=== PATIENT | female | born 2000 | race Caucasian/White ===

== ENCOUNTER → 2019-10-17 | Outpatient (CLI) | payer OTHER ==
[2019-10-20 04:07] LABS: CHLAMYDIA TRACHOMATIS, NAA Negative (Negative); NEISSERIA GONORRHOEAE, NAA Negative (Negative)
== END ==
LOC: LAB SHORT 18:53 → LAB 18:53
PROVIDERS: Registered Nurse Community Health
DX: Z34.91 Encounter for supervision of normal pregnancy, unspecified, first trimester (principal)
CPT/HCPCS: 87491; 87591

== ENCOUNTER → 2020-02-11 | Outpatient (CLI) | payer OTHER ==
[2020-02-11 18:51] LABS: Hematocrit 34.4 % (33.0-51.0); Hemoglobin 11.6 g/dL (11.5-16.0)
== END ==
LOC: LAB SHORT 18:23 → LAB 18:23
PROVIDERS: Registered Nurse Community Health
DX: Z34.83 Encounter for supervision of other normal pregnancy, third trimester (principal)
CPT/HCPCS: 82950; 85014; 85018

== ENCOUNTER → 2020-02-28 | Outpatient (CLI) | payer OTHER ==
[2020-03-02 04:09] LABS: CHLAMYDIA TRACHOMATIS, NAA Negative (Negative); NEISSERIA GONORRHOEAE, NAA Negative (Negative)
== END ==
LOC: LAB SHORT 18:17 → LAB 18:17
PROVIDERS: Registered Nurse Community Health
DX: N89.8 Other specified noninflammatory disorders of vagina (principal)
CPT/HCPCS: 87070; 87205; 87491; 87591

== ENCOUNTER → 2020-04-17 | Outpatient (CLI) | payer OTHER | LOC: LAB SHORT 18:55 → LAB 18:55 | DX: Z34.83 Encounter for supervision of other normal pregnancy, third trimester (principal) | CPT/HCPCS: 87081; 87653 ==

== ENCOUNTER 2020-05-18 15:28 | Inpatient (IN) | payer OTHER ==
[~2020-05-18] VITALS: Ht 170.2 cm; Wt 85.4 kg
[2020-05-18] MEDS ORDERED: PRENATAL TABLE1 EAC2 PO (20:47)
[2020-05-18 20:56] LABS: BASOPHILS ABSOLUTE AUTO 0.04 K/mm3 (0.00-0.23); BASOPHILS PERCENT AUTO 0 % (0-2); EOSINOPHILS ABSOLUTE AUTO 0.01 K/mm3 (0.00-0.68); EOSINOPHILS PERCENT AUTO 0 % (0-6); Hematocrit 35.7 % (33.0-51.0); Hemoglobin 11.5 g/dL (11.5-16.0); IMMATURE GRAN ABSOLUTE AUTO 0.11 K/mm3 (0.00-0.10); IMMATURE GRAN PERCENT AUTO 1 % (0-1); LYMPHOCYTES ABSOLUTE AUTO 1.59 K/mm3 (0.84-5.20); LYMPHOCYTES PERCENT AUTO 9 % (21-46); MONOCYTES ABSOLUTE AUTO 1.08 K/mm3 (0.16-1.47); MONOCYTES PERCENT AUTO 6 % (4-13); Mean Corpuscular HGB 28.3 pg (26.0-34.0); Mean Corpuscular HGB Conc 32.2 g/dL (31.5-36.5); Mean Corpuscular Volume 88 fL (80-100); Mean Platelet Volume 12.1 fL (9.1-12.4); NEUTROPHILS ABSOLUTE AUTO 15.41 K/mm3 (1.96-9.15); NEUTROPHILS PERCENT AUTO 85 % (41-73); Platelet Count 226 K/mm3 (150-400); RDW Coefficient Variation 12.4 % (11.7-14.2); RDW Standard Deviation 39.5 fL (35.1-46.3); Red Blood Cell Count 4.07 M/mm3 (3.80-5.20); White Blood Cell Count 18.24 K/mm3 (4.00-11.30)
--- NOTE | 2020-05-19 14:43 | NUR ---
LEG NUMB ON RIGHT BED CHANGED BUT UNABLE TO WALK TO BATHROOM AT THIS TIME, STATES SHE DOES NOT NEED TO VOID, FUNDUS FIRM, SCANT BLEEDING, WILL CALL WHEN SHE NEEDS TO VOID FOR HELP
[2020-05-20] MEDS ORDERED: IBU800 MG PO (05:19)
[2020-05-20 05:25] LABS: BASOPHILS ABSOLUTE AUTO 0.05 K/mm3 (0.00-0.23); BASOPHILS PERCENT AUTO 0 % (0-2); EOSINOPHILS ABSOLUTE AUTO 0.14 K/mm3 (0.00-0.68); EOSINOPHILS PERCENT AUTO 1 % (0-6); Hematocrit 28.1 % (33.0-51.0); Hemoglobin 8.9 g/dL (11.5-16.0); IMMATURE GRAN ABSOLUTE AUTO 0.06 K/mm3 (0.00-0.10); IMMATURE GRAN PERCENT AUTO 1 % (0-1); LYMPHOCYTES ABSOLUTE AUTO 3.33 K/mm3 (0.84-5.20); LYMPHOCYTES PERCENT AUTO 27 % (21-46); MONOCYTES ABSOLUTE AUTO 1.24 K/mm3 (0.16-1.47); MONOCYTES PERCENT AUTO 10 % (4-13); Mean Corpuscular HGB 28.1 pg (26.0-34.0); Mean Corpuscular HGB Conc 31.7 g/dL (31.5-36.5); Mean Corpuscular Volume 89 fL (80-100); Mean Platelet Volume 11.7 fL (9.1-12.4); NEUTROPHILS ABSOLUTE AUTO 7.35 K/mm3 (1.96-9.15); NEUTROPHILS PERCENT AUTO 60 % (41-73); Platelet Count 206 K/mm3 (150-400); RDW Coefficient Variation 12.6 % (11.7-14.2); RDW Standard Deviation 41.1 fL (35.1-46.3); Red Blood Cell Count 3.17 M/mm3 (3.80-5.20); White Blood Cell Count 12.17 K/mm3 (4.00-11.30)
--- NOTE | 2020-05-20 09:07 | NUR ---
RN ROUNED TO HELP W/ . INSTRUCT/DEMO WIDENING LATCH, CORRECT POSITIONING AND NIPPLE SHAPE AFTER FEEDS. INSTRUCT/REVIEWED BOOKLET AND BROCHURE ON WHAT TO EXPECT DURING THE FIRST WEEK W/ AND NB FEEDING PATTERN CHANGES. PT VERBALIZED UNDERSTANDING AND DENIES ANY FURTHER QUESTIONS OR CONCERNS.
--- NOTE | 2020-05-20 13:50 | NUR ---
RN ROUNDED AGAIN TO HELP W/ . IT HAS BEEN 5 HOURS SINCE NB FED LAST. NB HAS HIGH TSB LEVEL. INSTRUCTED PT THAT NB NEEDS TO FEED EVERY 2-3 HOURS AND TO SET ALARM ON PHONE TO WAKE NB UP TO FEED. PT HAS NB AT BREAST BUT NB IS SLEEPING AND PT IS NOT MAKING ANY ATTEMPT TO LATCH NB. RN SHOWED PT HOW TO HAND EXPRESS COLOSTRUM TO GET DROPS INTO NB MOUTH W/ THE HOPES OF GETTING BABY TO PERK UP AND LATCH. PT SCREAMED AT RN THAT IT HURTS WHEN SHE WAS HAND EXPRESSING AND STATES THAT IT DOESNT HURT WHEN NB IS LATCHED. PT INSTRUCTED TO LATCH NB EVERY 2-3 HOURS, BREASTFEED FOR 15 MINUTES AND SUPPLEMENT W/ FORMULA. PT STATES NB IS VERY SLEEPY, RN EXPLAINED THAT JAUNDICE WILL MAKE NB SLEEPY, AND IT IS IMPORTANT FOR PT TO WAKE NB. PT VERBALIZED UNDERSTANDING, DENIES ANY FURTHER QUESTIONS OR CONCERNS. PT DID NOT ASK ANY QUESTIONS OF RN WHEN IN THE ROOM.
== END 2020-05-20 14:00 | disposition home or self-care (01) | DRG 807 ==
LOC: BC 15:28 → OBS 15:28 → BC 15:29 → OBS 20:25 → BC 20:28
PROVIDERS: ADMIT Registered Nurse Community Health
PROC: 00HU33Z Insertion of Infusion Device into Spinal Canal, Percutaneous Approach (ICD-10-PCS; 2020-05-18)
PROC: 3E0R3BZ Introduction of Anesthetic Agent into Spinal Canal, Percutaneous Approach (ICD-10-PCS; 2020-05-18)
PROC: 10E0XZZ Delivery of Products of Conception, External Approach (ICD-10-PCS; principal; 2020-05-19)
PROC: 10907ZC Drainage of Amniotic Fluid, Therapeutic from Products of Conception, Via Natural or Artificial Opening (ICD-10-PCS; 2020-05-19)
DX: O80 Encounter for full-term uncomplicated delivery (principal); Z37.0 Single live birth; Z3A.40 40 weeks gestation of pregnancy
CPT/HCPCS: 36415; 51702; 59025; 85025; J1885; J2001; J2210; J2590; J3010; J7120

== ENCOUNTER 2021-01-31 23:47 | Emergency (ER) | payer OTHER ==
[~2021-01-31] VITALS: Ht 170.2 cm; Wt 86.2 kg
[~2021-01-31 23:47] MED LIST: IBU800 MG PO; PRENATAL TABLE1 EAC2 PO
[2021-02-01] MEDS ORDERED: CIPRODEX OTIC7.5 M1 RIGHTEAR (00:33)
== END 2021-02-01 00:44 | disposition home or self-care (01) ==
LOC: ER 23:47
DX: H60.91 Unspecified otitis externa, right ear (principal); Z88.7 Allergy status to serum and vaccine; Z91.018 Allergy to other foods; Z87.891 Personal history of nicotine dependence
CPT/HCPCS: 99282

== ENCOUNTER → 2021-04-02 | Outpatient (CLI) | payer OTHER ==
[~2021-04-02] MED LIST changes: +CIPRODEX OTIC7.5 M1 RIGHTEAR
[2021-04-02 20:00] LABS: Hematocrit 35.1 % (33.0-51.0); Hemoglobin 11.7 g/dL (11.5-16.0)
== END ==
LOC: LAB 19:46 → LAB SHORT 19:46
PROVIDERS: Registered Nurse Community Health
DX: Z33.1 Pregnant state, incidental (principal)
CPT/HCPCS: 82950; 85014; 85018